=== PATIENT | female | born 1960 | race Two or more races ===

== ENCOUNTER 2018-01-27 17:57 | Emergency (ER) | payer OTHER ==
[~2018-01-27] VITALS: Ht 152.4 cm; Wt 79.4 kg
[2018-01-27] MEDS ORDERED: [UNRECOGNIZED DRUG - OTHER] (19:49)
[2018-01-27] MEDS ORDERED: NORVASC5 MG (19:49)
[2018-01-27] MEDS ORDERED: ESCITALOPRAM OX10 MG (19:49)
[2018-01-27] MEDS ORDERED: ALPRAZOLAM1 M1 (19:50)
[2018-01-27] MEDS ORDERED: ZOLPIDEM TARTRA10 MG (19:51)
== END 2018-01-27 23:56 | disposition home or self-care (01) ==
LOC: ER 17:57 → CPU-OBS 18:01 → ER 01-28 00:52
DX: R07.89 Other chest pain (principal); S13.8XXA Sprain of joints and ligaments of other parts of neck, initial encounter; S40.022A Contusion of left upper arm, initial encounter; M62.830 Muscle spasm of back; R10.84 Generalized abdominal pain; M47.893 Other spondylosis, cervicothoracic region; F41.8 Other specified anxiety disorders; Y04.2XXA Assault by strike against or bumped into by another person, initial encounter; Y93.89 Activity, other specified; Y92.89 Other specified places as the place of occurrence of the external cause; Y99.8 Other external cause status